=== PATIENT | male | born 1945 | race Caucasian/White ===

== ENCOUNTER 2016-05-27 14:33 | Day surgery (SDC) | payer MEDICARE, OTHER ==
--- NOTE | ~2016-05-27 | EGD ---
EGD REPORT [facility] [address] [place]. 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 Referring MD: Karri Mcfarland MD, JUAN A PEREZ MD, Doyle Lozano Medicines: Monitored Anesthesia Care Complications: No immediate complications. Estimated blood loss: None. Procedure: Pre-Anesthesia Assessment: - ASA Grade Assessment: III - A patient with severe systemic disease. After obtaining informed consent, the endoscope was passed under direct vision. Throughout the procedure, the patient's blood pressure, pulse, and oxygen saturations were monitored continuously. The Endoscope was introduced through the mouth, and advanced to the jejunum. The GIF [id number] was introduced through the mouth, and advanced to the jejunum. Findings: Endoscopic Finding : Altamirano's esophagus was present in the lower third of the esophagus. The maximum longitudinal extent of these mucosal changes was 2 cm in length. Biopsies were taken with a cold forceps for histology. Verification of patient identification for the specimen was done. Estimated blood loss was minimal. Evidence of a gastroenterostomy was found in the gastric antrum. The examined jejunum was normal. Endosonographic Finding : There was no sign of significant endosonographic abnormality in the pancreatic body and in the pancreatic tail. No pathologic lymphadenopathy, no masses, no calcifications, the pancreatic duct was well visualized from ampulla to tail, the pancreatic duct was regular in contour. Unable to visualize the area of the prior head due to the patient's alterered anatomy. No lymphadenopathy seen. Impression: - Altamirano's esophagus. Biopsied. - A gastroenterostomy was found. - Normal examined jejunum. EGD REPORT [address] [address] NAME: EFREN DUFF : [birth year] STATUS : REG [facility] PAT#: [id number] AGE: 71 ADM/REG DATE : 05/27/16 MR#: [id number] REPORT SERV DATE: 05/27/16 DICTATED BY: DILLAN RICE DATE: 05/27/16 REPORT STATUS : Draft [facility]ANSCRIBED BY: [facility] DATE: 05/27/16 - There was no sign of significant pathology in the pancreatic body and in the pancreatic tail. Recommendation: - Return to previous diet. - Continue present medications. - Will need to pursue alternative method of tissue acquisition. - Return to referring physician. Procedure Code(s): --- Professional --- 22024, Esophagogastroduodenoscopy, flexible, transoral; with endoscopic ultrasound examination, including the esophagus, stomach, and either the duodenum or a surgically altered stomach where the jejunum is examined distal to the anastomosis Diagnosis Code(s): --- Professional --- K22.70, Altamirano's esophagus without dysplasia Z98.0, Intestinal bypass and anastomosis status CPT copyright 2013 [employer]. All rights reserved. The codes documented in this report are preliminary and upon information coder review may be revised to meet current compliance requirements. DILLAN RICE, 05/27/2016 4:04 PM Number of Addenda: 0 Note Initiated On: 05/27/2016 3:35 PM Scope Withdrawal Time 0 hours 0 minutes 0 seconds [id number] [id number]
[~2016-05-27 14:33] MED LIST: ASAB PO; AUG875 PO; B COMPLETE PO; CO Q-10100 MG PO; CO Q-10200 MG PO; CORDARONE PO; CRANBERRY FRUIT PO; CRANBERRY PO; CRANBERRY1 TAB PO; CREON24000 UNT; CREON24000 UNT PO; CRESTOR20 MG PO; DSS PO; ELIQUIS 5 MG TAB5 MG PO; EZFE 200200 MG PO; FLAG500TAB PO; LEVAQUIN750 MG PO; LEVOTHYROXIN50 MCG PO; LOP25 PO; LOTE20 PO; LUTEIN PO; LUTEIN1 CAP PO; MELA3 PO; MIRALAXPKT PO; MULTIPLE VIT PO; MULTIVIT/MIN PO; NEUR300 PO; NEXIUM20 M1 PO; NEXIUM40 PO; NORCO1 TA1 PO; PCET PO; PROBIOTIC PO; SAW PALMETT2 PO; SYN.05 PO; VITC500 PO; ZOFRAN4 PO; [UNRECOGNIZED DRUG - OTHER]; [UNRECOGNIZED DRUG - OTHER] PO; [UNRECOGNIZED DRUG - OTHER] PO
== END 2016-05-27 23:59 | disposition home or self-care (01) ==
LOC: DMU 14:33
PROVIDERS: Internal Medicine Gastroenterology
PROC: 0DB38ZX Excision of Lower Esophagus, Via Natural or Artificial Opening Endoscopic, Diagnostic (ICD-10-PCS; 2016-05-27)
PROC: 0DJ08ZZ Inspection of Upper Intestinal Tract, Via Natural or Artificial Opening Endoscopic (ICD-10-PCS; principal; 2016-05-27 16:30)
DX: K22.70 Barrett's esophagus without dysplasia (principal); K21.9 Gastro-esophageal reflux disease without esophagitis; K44.9 Diaphragmatic hernia without obstruction or gangrene; I25.2 Old myocardial infarction; E03.9 Hypothyroidism, unspecified; M19.90 Unspecified osteoarthritis, unspecified site; Z98.0 Intestinal bypass and anastomosis status; Z95.1 Presence of aortocoronary bypass graft; Z88.1 Allergy status to other antibiotic agents; Z88.8 Allergy status to other drugs, medicaments and biological substances; Z79.82 Long term (current) use of aspirin; Z79.899 Other long term (current) drug therapy; Z85.07 Personal history of malignant neoplasm of pancreas; Z87.891 Personal history of nicotine dependence; Z87.442 Personal history of urinary calculi; Z87.01 Personal history of pneumonia (recurrent)
CPT/HCPCS: 88305; C1725